=== PATIENT | male | born 1945 | race Caucasian/White ===

== ENCOUNTER 2016-08-07 10:10 | Inpatient (IN) | payer OTHER ==
[~2016-08-07] VITALS: Ht 172.7 cm; Wt 90.7 kg
[2016-08-07 11:07] LABS: BASOPHIL % 0.3 % (0-2); PLATELET COUNT 157 x10^3mcL (130-400)
[2016-08-07 11:08] LABS: RED CELL DISTRIBUTION WIDTH 15.2 % (11.5-14.5)
[2016-08-07 11:18] LABS: CALCIUM 8.6 mg/dL (8.5-10.1); CARBON DIOXIDE 29.3 mmol/L (21-32); CHLORIDE SERUM 98 mmol/L (98-107); CREATININE SERUM 0.7 mg/dL (0.7-1.3); GLUCOSE SERUM 116 mg/dL (74-106); POTASSIUM SERUM 3.9 mmol/L (3.5-5.1); SODIUM SERUM 136 mmol/L (136-145)
[2016-08-07 11:24] LABS: ALBUMIN 3.1 g/dL (3.4-5.0); ALKALINE PHOSPHATASE 141 U/L (46-116); ALT/SGPT 28 U/L (16-63); AST/SGOT 24 U/L (15-37); LIPASE 68 IU/L (73-393); MAGNESIUM 1.7 mg/dL (1.8-2.4); TOTAL PROTEIN, SERUM 6.3 g/dL (6.4-8.2)
[2016-08-07] MEDS ORDERED: METOPROLOL SUCC50 M2 PO (12:11)
[2016-08-07] MEDS ORDERED: ZANTAC 150150 MG PO (12:11)
[2016-08-07] MEDS ORDERED: METOPROLOL SUCC50 M2 (12:12)
[2016-08-07] MEDS ORDERED: NORCO1 TA2 PO (12:13)
[2016-08-07] MEDS ORDERED: ELIQUIS5 MG PO (12:13)
[2016-08-07] MEDS ORDERED: METOPROLOL TART50 MG PO (13:37)
[2016-08-07 14:57] VITALS: BP 154/88
[2016-08-07 15:00] LABS: UA SPECIFIC GRAVITY 1.015 (1.005-1.035); microscopic required? YES; urine erythrocyte TRACE (NEGATIVE)
[2016-08-07 15:08] LABS: AMPHETAMINE QUAL UR NONE DETECTED (NEG <=1000)
[2016-08-07 15:10] LABS: T3 TOTAL 0.81 ng/mL
[2016-08-07 15:21] LABS: CHOLESTEROL/HDL RATIO 2.3
[2016-08-07 15:28] LABS: FREE T4 1.5 ng/dL (0.76-1.46); FREE THYROXINE INDEX 3.9 ug/dL (1.4-4.5); T4(THYROXINE) 9.5 ug/dL (4.7-13.3)
[2016-08-07 18:05] VITALS: BP 130/64
[2016-08-07 18:12] VITALS: BP 107/59
[2016-08-07 21:03] VITALS: BP 151/93
[2016-08-08 05:19] LABS: BASOPHIL % 0.2 % (0-2); PLATELET COUNT 157 x10^3mcL (130-400)
[2016-08-08 05:24] LABS: RED CELL DISTRIBUTION WIDTH 15.4 % (11.5-14.5)
[2016-08-08 05:39] LABS: ALKALINE PHOSPHATASE 113 U/L (46-116); ALT/SGPT 25 U/L (16-63); AST/SGOT 21 U/L (15-37); BILIRUBIN TOTAL 2.84 mg/dL (0.20-1.00); CALCIUM 8.4 mg/dL (8.5-10.1); CARBON DIOXIDE 28.9 mmol/L (21-32); CHLORIDE SERUM 99 mmol/L (98-107); CREATININE SERUM 0.8 mg/dL (0.7-1.3); GLUCOSE SERUM 102 mg/dL (74-106); MAGNESIUM 1.7 mg/dL (1.8-2.4); POTASSIUM SERUM 3.7 mmol/L (3.5-5.1); SODIUM SERUM 135 mmol/L (136-145)
[2016-08-08 05:42] LABS: ALBUMIN 2.6 g/dL (3.4-5.0); TOTAL PROTEIN, SERUM 5.5 g/dL (6.4-8.2)
[2016-08-08 06:56] VITALS: BP 126/82
[2016-08-08 09:42] VITALS: BP 121/73
[2016-08-08 17:16] VITALS: BP 116/70
[2016-08-08 21:57] VITALS: BP 138/90
[2016-08-09 05:43] VITALS: BP 121/75
[2016-08-09 10:14] VITALS: BP 112/53
[2016-08-09] MEDS ORDERED: METOPROLOL TAR100 MG PO (11:19)
[2016-08-09 12:24] VITALS: BP 112/53
[2016-08-09 13:36] VITALS: BP 118/61
[2016-08-09 17:36] VITALS: BP 127/78
[2016-08-09 21:54] VITALS: BP 110/68
[2016-08-10 05:20] VITALS: BP 133/83
[2016-08-10 06:58] LABS: ALKALINE PHOSPHATASE 96 U/L (46-116); ALT/SGPT 19 U/L (16-63); AST/SGOT 20 U/L (15-37); BILIRUBIN TOTAL 1.69 mg/dL (0.20-1.00); CALCIUM 8.2 mg/dL (8.5-10.1); CARBON DIOXIDE 28.5 mmol/L (21-32); CHLORIDE SERUM 99 mmol/L (98-107); CREATININE SERUM 0.9 mg/dL (0.7-1.3); GLUCOSE SERUM 91 mg/dL (74-106); MAGNESIUM 2.1 mg/dL (1.8-2.4); POTASSIUM SERUM 4.7 mmol/L (3.5-5.1); SODIUM SERUM 134 mmol/L (136-145)
[2016-08-10 06:59] LABS: ALBUMIN 2.3 g/dL (3.4-5.0); TOTAL PROTEIN, SERUM 5.3 g/dL (6.4-8.2)
[2016-08-10 09:30] VITALS: BP 108/59
[2016-08-10 15:41] VITALS: BP 108/59
[2016-08-10 17:40] VITALS: BP 111/70
[2016-08-10 22:20] VITALS: BP 116/75
[2016-08-11 05:13] VITALS: BP 113/70
[2016-08-11 07:42] LABS: BASOPHIL % 0.5 % (0-2); PLATELET COUNT 185 x10^3mcL (130-400)
[2016-08-11 07:46] LABS: RED CELL DISTRIBUTION WIDTH 14.7 % (11.5-14.5)
[2016-08-11 07:55] LABS: CALCIUM 8.1 mg/dL (8.5-10.1); CARBON DIOXIDE 30.1 mmol/L (21-32); CHLORIDE SERUM 99 mmol/L (98-107); CREATININE SERUM 0.7 mg/dL (0.7-1.3); GLUCOSE SERUM 89 mg/dL (74-106); POTASSIUM SERUM 3.8 mmol/L (3.5-5.1); SODIUM SERUM 132 mmol/L (136-145)
[2016-08-11 08:00] VITALS: BP 131/79
[2016-08-11] MEDS ORDERED: LIPI10 PO (10:19)
[2016-08-11] MEDS ORDERED: ZES10 PO (10:19)
[2016-08-11] MEDS ORDERED: LAC PO (10:20)
[2016-08-11 12:20] VITALS: BP 117/73
[2016-08-11 14:00] VITALS: BP 116/71
[2016-08-11 21:43] VITALS: BP 130/74
[2016-08-12 05:08] VITALS: BP 128/82
[2016-08-12 07:34] LABS: BASOPHIL % 0.3 % (0-2); PLATELET COUNT 212 x10^3mcL (130-400)
[2016-08-12 07:37] LABS: CALCIUM 7.9 mg/dL (8.5-10.1); CARBON DIOXIDE 31.1 mmol/L (21-32); CHLORIDE SERUM 95 mmol/L (98-107); CREATININE SERUM 0.7 mg/dL (0.7-1.3); GLUCOSE SERUM 92 mg/dL (74-106); MAGNESIUM 1.4 mg/dL (1.8-2.4); PHOSPHOROUS 2.4 mg/dL (2.5-4.9); POTASSIUM SERUM 3.9 mmol/L (3.5-5.1); SODIUM SERUM 131 mmol/L (136-145)
[2016-08-12 07:40] LABS: RED CELL DISTRIBUTION WIDTH 14.7 % (11.5-14.5)
[2016-08-12 09:00] VITALS: BP 125/56; BP 151/84
[2016-08-12] MEDS ORDERED: MER500I IV (10:01)
[2016-08-12 11:05] VITALS: BP 128/82
== END 2016-08-12 16:47 | disposition home health service (06) | DRG 166 ==
LOC: ED 10:10 → MU 12:27 → DU 12:27 → MU 08-10 06:50
PROVIDERS: Emergency Medicine; Family Medicine; ADMIT Family Medicine
PROC: 0HBKXZZ Excision of Right Lower Leg Skin, External Approach (ICD-10-PCS; principal; 2016-08-09)
PROC: 0HBMXZZ Excision of Right Foot Skin, External Approach (ICD-10-PCS; 2016-08-09)
PROC: 0HBLXZZ Excision of Left Lower Leg Skin, External Approach (ICD-10-PCS; 2016-08-09)
PROC: 8E0YXY8 Suture Removal from Lower Extremity (ICD-10-PCS; 2016-08-09)
PROC: 05H833Z Insertion of Infusion Device into Left Axillary Vein, Percutaneous Approach (ICD-10-PCS; 2016-08-11)
PROC: B54NZZA Ultrasonography of Left Upper Extremity Veins, Guidance (ICD-10-PCS; 2016-08-11)
DX: M94.0 Chondrocostal junction syndrome [Tietze] (principal); N17.0 Acute kidney failure with tubular necrosis; J69.0 Pneumonitis due to inhalation of food and vomit; E44.0 Moderate protein-calorie malnutrition; N39.0 Urinary tract infection, site not specified; E87.1 Hypo-osmolality and hyponatremia; L97.829 Non-pressure chronic ulcer of other part of left lower leg with unspecified severity; L97.219 Non-pressure chronic ulcer of right calf with unspecified severity; L03.116 Cellulitis of left lower limb; L03.115 Cellulitis of right lower limb; I83.028 Varicose veins of left lower extremity with ulcer other part of lower leg; I83.013 Varicose veins of right lower extremity with ulcer of ankle; I83.012 Varicose veins of right lower extremity with ulcer of calf; B96.20 Unspecified Escherichia coli [E. coli] as the cause of diseases classified elsewhere; I48.2 Chronic atrial fibrillation; I27.2 Other secondary pulmonary hypertension; E11.65 Type 2 diabetes mellitus with hyperglycemia; E83.42 Hypomagnesemia; M62.50 Muscle wasting and atrophy, not elsewhere classified, unspecified site; K74.60 Unspecified cirrhosis of liver; E66.9 Obesity, unspecified; Z68.30 Body mass index [BMI] 30.0-30.9, adult; Z96.653 Presence of artificial knee joint, bilateral; Z16.12 Extended spectrum beta lactamase (ESBL) resistance; Z16.24 Resistance to multiple antibiotics
CPT/HCPCS: 82962; 83880; 84439; 97110-GP; 97116-GP; 97530-GP; C1751; J1170; J1642; J1940; J2001; J2185; J2270; J2405; J2543; J3475; J3490; J7030; J7620; Q0092